=== PATIENT | female | born 1940 | race Caucasian/White ===

== ENCOUNTER 2016-03-22 14:48 | Emergency (ER) | payer OTHER ==
[~2016-03-22] VITALS: Ht 165.1 cm; Wt 61.2 kg
[2016-03-22 15:17] VITALS: BP 153/70
== END 2016-03-22 16:56 | disposition home or self-care (01) ==
LOC: ER 15:01
DX: J20.9 Acute bronchitis, unspecified (principal); E11.9 Type 2 diabetes mellitus without complications; I10 Essential (primary) hypertension
CPT/HCPCS: 71020; 93005